=== PATIENT | male | born 1975 | race Caucasian/White ===

== ENCOUNTER 2017-06-07 21:46 | Emergency (ER) | payer SELFPAY ==
--- NOTE | 2017-06-08 06:42 | ED CLINICAL REPORT ---
Clinical Report - Physicians/Mid Levels [facility] [address] [place] [address] 06/07/2017 21:47 Patient: SOCORRO BINGHAM Time Seen: 2202. Arrived- By private vehicle. Historian- patient. HISTORY OF PRESENT ILLNESS Chief Complaint: "GOT THE SHAKES". Wants to stop drinking. Symptoms started today. Substances abused: Alcohol. No fever, chills, vomiting, diarrhea or abdominal pain. No tremors, seizure, agitation, delusions or hallucinations. He has had nausea and suicidal thoughts. But expresses no current suicidal thoughts and been depressed. Not confused or paranoid. The symptoms are described as moderate. No injuries noted. Patient states that he has been feeling depressed ever since his girlfriend committed suicide 5 years ago. However, he states that things got worse a couple months ago when he was notified that he would be evicted from his rental residence. Patient states that he was evicted 2 weeks ago and decided that he would also just quit his job. Patient states that he began drinking more heavily than usual at that time. Patient has been drinking about a pint of liquor daily for the last year, but that over the last 2 weeks, he has been drinking a fifth to a half gallon of whiskey every day. Patient states that today, he had a fifth of whiskey between 9:00 and noon, and then had a beer and a shot of whiskey at 1700 this evening. He states he has been feeling shaky and sweaty over the last couple of hours. Patient states his mother dropped him off here for detox. Similar symptoms previously: Recent medical care: The patient was seen recently by a health care provider (Pt was evaluated 2 weeks ago in [place] for EtOH withdrawal.). REVIEW OF SYSTEMS The patient has not had weight loss. No sweats, headache, dizziness, weakness or chest pain. No palpitations, black stools, numbness, bloody stools or sore throat. No cough, difficulty breathing, difficulty with urination, skin abscess or joint pain. No enlarged lymph nodes. No difficulty walking. All systems otherwise negative, except as recorded above. PAST HISTORY Problems: Alcoholism. Additional Surgeries: no known surgeries. Medications: None. Allergies: No Known Drug Allergy. SOCIAL HISTORY Smoker- current status unknown. Alcohol use. History of drug use: marijuana. FAMILY HISTORY Negative. ADDITIONAL NOTES The nursing notes have been reviewed. PHYSICAL EXAM Vital Signs: 06/07/2017 22:07 BP: 165/116. HR: 123. RR: 16. O2 saturation: 98%. Temp: 98.2 F. Pain level now: 0/10. Have been reviewed. Appearance: Alert. Oriented X3. No acute distress. (Patient appears slightly anxious.). Head: Head atraumatic. Eyes: Pupils equal, round and reactive to light. ENT: Normal ENT inspection. Airway intact. Moist mucous membranes. Neck: Normal inspection. CVS: Normal heart rate and rhythm. Heart sounds normal. Pulses normal. Respiratory: No respiratory distress. Breath sounds normal. Abdomen: Soft and nontender. Back: Normal inspection. Skin: Skin warm. Normal skin color. No rash. Normal skin turgor. Slight diaphoresis. Extremities: Extremities exhibit normal ROM. No lower extremity edema. Neuro: Alert. Oriented X 3. Mood/affect normal. Speech normal. Cranial nerves normal (as tested). No cerebellar findings. No motor deficit. No sensory deficit. (Patient has fine tremors of his bilateral upper extremities.). LABS, X-RAYS, AND EKG Laboratory Tests: Urine Drug Screen: (TATA: 06/08/2017 01:05) ( MsgRcvd 06/08/2017 01:26) Final results Test Result Flag Units (Reference) AMPHETAMINE/METHAMPHETAMINE NEGATIVE (NEGATIVE) BARBITURATE NEGATIVE (NEGATIVE) BENZODIAZEPINE NEGATIVE (NEGATIVE) CANNABINOID POSITIVE H (NEGATIVE) COCAINE NEGATIVE (NEGATIVE) ECSTASY NEGATIVE (NEGATIVE) METHADONE NEGATIVE (NEGATIVE) OPIATE NEGATIVE (NEGATIVE) The urine drug screen is a qualitative screening test fordrug overdose and abuse. All screen results should beconsidered as presumptive.Drugs screened for are as follows:BenzodiazepinesCocaineAmphetamines/MetamphetaminesTHC (Tetrahydrocannabinol)OpiatesBarbituratesEcstasyMethadonePositive results are unconfirmed. For confirmation, notifythe lab for the specimen to be sent to the reference lab.All confirmations must be performed by a differentmethodology.The ingestion of natural herbal and plant productscontaining Ephedra/Ephedra metabolites can produce in urineone or more substances capable of cross reacting withamphetamine/methamphetamine immunoassays. These testsprovide a preliminary result only. A more specificalternative chemical method must be used to obtain aconfirmed analytical result. CBC w Diff: (TATA: 06/07/2017 23:22) ( [facility] 06/07/2017 23:36) Final results Test Result Flag Units (Reference) WHITE BLOOD COUNT 4.4 L K/uL (4.5-11.5) RED BLOOD COUNT 4.23 L M/uL (4.50-5.90) HEMOGLOBIN 14.9 gm/dL (13.5-17.5) HEMATOCRIT 43.1 % (41.0-53.0) MEAN CELL VOLUME 102 H fL (80-100) MEAN CORPUSCULAR HGB 35 H pg (26-34) MEAN CORPUSCULAR HGB CONC 35 g/dL (31-37) RED CELL DISTRIBUTION WIDTH 12.4 % (11.6-14.8) PLATELET COUNT 116 L K/uL (150-400) LYMPH % 27.9 % (25-40) MONO % 10.6 % (3-14) GRANULOCYTE % 61.5 % (53-90) CMP: (TATA: 06/07/2017 23:22) ( [facility] 06/07/2017 23:49) Final results Test Result Flag Units (Reference) GLUCOSE 150 H mg/dL (70-110) BUN 11 mg/dL (7-18) CREATININE 0.9 mg/dL (0.6-1.3) Estimated GFR >60 mL/min Estimated GFR- >60 mL/min Note: Persistent reduction over 3 months in eGFR<60 mL/min/1.73 m2 defines CKD. Patients with eGFR values>=60 mL/min/1.73 m2 may also have CKD if evidence ofpersistent proteinuria. Additional information may be foundat www.kidney.org. SODIUM 137 mmol/L (136-145) POTASSIUM 3.3 L mmol/L (3.5-5.1) CHLORIDE 98 mmol/L (98-107) CARBON DIOXIDE 26 mmol/L (21-32) CALCIUM 8.8 mg/dL (8.5-10.1) TOTAL PROTEIN 8.1 g/dL (6.4-8.2) ALBUMIN 4.5 g/dL (3.3-5.0) BILIRUBIN, TOTAL 0.8 mg/dL (0.0-1.0) ALKALINE PHOSPHATASE 107 U/L (46-116) AST (SGOT) 246 H U/L (15-37) ALT (SGPT) 173 H U/L (12-78) ETHYL ALCOHOL 91 H mg/dL (3-10) . Pulse Oximetry: 06/07/2017 22:07 O2 saturation: 98%. (FIO2 - room air). Interpretation: normal. PROGRESS AND PROCEDURES Course of Care: PT was observed in the ED after receiving Ativan 1 mg IV, as well as a banana bag. Pt reported feeling better overall. Pt was not currently suicidal, but as he was in need of urgent mental health follow-up, I did contact the [facility] to have the pt evaluated by PAT. However, the clinician was not able to make it to the ED within the night, as she was busy elsewhere, and did inform us that no clinician would be available until the following night at 2200. [facility] stated they no longer do emergency dept evaluations, and so we did get the pt a next-day appt. Pt was agreeable to this, stating that he is staying with his parents, who will keep him safe and away from EtOH. Pt was given a prescription for Librium. Patient counseled in person regarding the patient's stable condition, test results, diagnosis and need for follow-up. Concerns were addressed. Old medical records ordered. Old records unavailable. Disposition: Discharged. Condition: stable and improved. CLINICAL IMPRESSION Chronic substance abuse- alcohol with intoxication. 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 INSTRUCTIONS (You have been scheduled for a follow-up appointment with [facility] ([address] [place] [address]) at 11:00 tomorrow morning. Their phone # is [phone].). Warnings: SEDATIVE MEDICATION: You were given sedative medication during your visit. Do not drive or operate dangerous machinery for 6 hours. GENERAL WARNINGS: Return or contact your physician immediately if your condition worsens or changes unexpectedly, if not improving as expected, or if other problems arise. Prescription Medications: Librium 10 mg: take 1 orally every 8 hours for 3 days. No refill. Substitution is permissible. (disp # QS) Understanding of the discharge instructions verbalized by patient and family. Follow-up with: [facility], , [address] [place] [address], [address] [place] [address] Follow up. Call for the next available appointment. Reason for referral: Establish care. Follow-up with: Information [facility], Certified Mental Health Board Certified Music Therapist, , , , , (Electronically signed by Ada Jimenez MD 06/09/2017 18:19)
--- NOTE | 2017-06-08 06:42 | ED ORDER SUMMARY ---
..... Patient: SOCORRO BINGHAM OrderSheet [facility] VisitID: [id number] [place] [address] 42y, M Registration Date/Time: 06/07/2017 ORDER SHEET Weight: 74.8 kg (stated) Allergies: No Known Drug Allergy GENERAL ORDERS: CBC w Diff Urgent (22:53 06/07/2017 Leander CAMPOS) (Ack 22:58 CHagerty ER Fish Skinning Machine Feeder) (23:32 JQuivey R.N.) CMP Urgent (:53 06/07/2017 Leander CAMPOS) (Ack 22:58 CHagerty ER Fish Skinning Machine Feeder) (23:32 JQuivey R.N.) Urine Drug Screen Urgent (:53 06/07/2017 Leander CAMPOS) (Ack 22:58 [employer] [facility] Fish Skinning Machine Feeder) (1:11 JQuivey R.N.) Ethyl Alcohol Urgent (:53 06/07/2017 Leander CAMPOS) (Ack 22:58 [employer] ER Fish Skinning Machine Feeder) (23:32 JQuivey R.N.) MEDICATION ORDERS: IV FLUIDS: IV NS with Normal Saline 1 Liter, Folic Acid 1 mg/L, Magnesium Sulfate 2 gm/L, Multivitamin Concentrate Intravenous 1 amp/L, Thiamine HCl 100 mg/L: initial bolus 1000 mL (1000 mL/hr), then none - (NOW) (22:53 06/07/2017 Leander CAMPOS) (23:35 JQuivey R.N.) Ativan IV 1 mg (HIGH ALERT MEDICATION, NOW) (22:53 06/07/2017 Leander CAMPOS) (23:36 JQuivey R.N.) Zofran IV 4 mg (NOW) (22:53 06/07/2017 Leander CAMPOS) (23:36 JQuivey R.N.) Ativan IV 1 mg (HIGH ALERT MEDICATION, NOW) (06:25 06/08/2017 Leander CAMPOS) (Ack 6:34 JQuivey R.N.) (6:52 JQuivey R.N.) ORDER SHEET NOTES: [Electronically signed by Kian Stover R.N. (07:09 06/08/2017)] [Electronically signed by Ada Jimenez MD (18:19 06/09/2017)] [Electronically locked/signed by Kian Stover R.N. (07:09 06/08/2017)]
--- NOTE | 2017-06-08 06:42 | ED ORDER SUMMARY ---
..... Patient: SOCORRO BINGHAM OrderSheet [facility] VisitID: [id number] [place] [address] 42y, M Registration Date/Time: 06/07/2017 ORDER SHEET Weight: 74.8 kg (stated) Allergies: No Known Drug Allergy GENERAL ORDERS: CBC w Diff Urgent (22:53 06/07/2017 Leander CAMPOS) (Ack 22:58 CHagerty ER Diesel Engineer) (23:32 JQuivey R.N.) CMP Urgent (:53 06/07/2017 Leander CAMPOS) (Ack 22:58 CHagerty ER Diesel Engineer) (23:32 JQuivey R.N.) Urine Drug Screen Urgent (:53 06/07/2017 Leander CAMPOS) (Ack 22:58 AM Technology ER Diesel Engineer) (1:11 JQuivey R.N.) Ethyl Alcohol Urgent (:53 06/07/2017 Leander CAMPOS) (Ack 22:58 AM Technology ER Diesel Engineer) (23:32 JQuivey R.N.) MEDICATION ORDERS: IV FLUIDS: IV NS with Normal Saline 1 Liter, Folic Acid 1 mg/L, Magnesium Sulfate 2 gm/L, Multivitamin Concentrate Intravenous 1 amp/L, Thiamine HCl 100 mg/L: initial bolus 1000 mL (1000 mL/hr), then none - (NOW) (22:53 06/07/2017 Leander CAMPOS) (23:35 JQuivey R.N.) Ativan IV 1 mg (HIGH ALERT MEDICATION, NOW) (22:53 06/07/2017 Leander CAMPOS) (23:36 JQuivey R.N.) Zofran IV 4 mg (NOW) (22:53 06/07/2017 Leander CAMPOS) (23:36 JQuivey R.N.) Ativan IV 1 mg (HIGH ALERT MEDICATION, NOW) (06:25 06/08/2017 Leander CAMPOS) (Ack 6:34 JQuivey R.N.) (6:52 JQuivey R.N.) ORDER SHEET NOTES: [Electronically signed by Kian Stover R.N. (07:09 06/08/2017)] [Electronically signed by Ada Jimenez MD (18:19 06/09/2017)] [Electronically locked/signed by Kian Stover R.N. (07:09 06/08/2017)]
--- NOTE | 2017-06-08 06:42 | ED CLINICAL REPORT ---
Clinical Report - Physicians/Mid Levels [facility] [address] [place] [address] 06/07/2017 21:47 Patient: SOCORRO BINGHAM Time Seen: 2202. Arrived- By private vehicle. Historian- patient. HISTORY OF PRESENT ILLNESS Chief Complaint: "GOT THE SHAKES". Wants to stop drinking. Symptoms started today. Substances abused: Alcohol. No fever, chills, vomiting, diarrhea or abdominal pain. No tremors, seizure, agitation, delusions or hallucinations. He has had nausea and suicidal thoughts. But expresses no current suicidal thoughts and been depressed. Not confused or paranoid. The symptoms are described as moderate. No injuries noted. Patient states that he has been feeling depressed ever since his girlfriend committed suicide 5 years ago. However, he states that things got worse a couple months ago when he was notified that he would be evicted from his rental residence. Patient states that he was evicted 2 weeks ago and decided that he would also just quit his job. Patient states that he began drinking more heavily than usual at that time. Patient has been drinking about a pint of liquor daily for the last year, but that over the last 2 weeks, he has been drinking a fifth to a half gallon of whiskey every day. Patient states that today, he had a fifth of whiskey between 9:00 and noon, and then had a beer and a shot of whiskey at 1700 this evening. He states he has been feeling shaky and sweaty over the last couple of hours. Patient states his mother dropped him off here for detox. Similar symptoms previously: Recent medical care: The patient was seen recently by a health care provider (Pt was evaluated 2 weeks ago in [place] for EtOH withdrawal.). REVIEW OF SYSTEMS The patient has not had weight loss. No sweats, headache, dizziness, weakness or chest pain. No palpitations, black stools, numbness, bloody stools or sore throat. No cough, difficulty breathing, difficulty with urination, skin abscess or joint pain. No enlarged lymph nodes. No difficulty walking. All systems otherwise negative, except as recorded above. PAST HISTORY Problems: Alcoholism. Additional Surgeries: no known surgeries. Medications: None. Allergies: No Known Drug Allergy. SOCIAL HISTORY Smoker- current status unknown. Alcohol use. History of drug use: marijuana. FAMILY HISTORY Negative. ADDITIONAL NOTES The nursing notes have been reviewed. PHYSICAL EXAM Vital Signs: 06/07/2017 22:07 BP: 165/116. HR: 123. RR: 16. O2 saturation: 98%. Temp: 98.2 F. Pain level now: 0/10. Have been reviewed. Appearance: Alert. Oriented X3. No acute distress. (Patient appears slightly anxious.). Head: Head atraumatic. Eyes: Pupils equal, round and reactive to light. ENT: Normal ENT inspection. Airway intact. Moist mucous membranes. Neck: Normal inspection. CVS: Normal heart rate and rhythm. Heart sounds normal. Pulses normal. Respiratory: No respiratory distress. Breath sounds normal. Abdomen: Soft and nontender. Back: Normal inspection. Skin: Skin warm. Normal skin color. No rash. Normal skin turgor. Slight diaphoresis. Extremities: Extremities exhibit normal ROM. No lower extremity edema. Neuro: Alert. Oriented X 3. Mood/affect normal. Speech normal. Cranial nerves normal (as tested). No cerebellar findings. No motor deficit. No sensory deficit. (Patient has fine tremors of his bilateral upper extremities.). LABS, X-RAYS, AND EKG Laboratory Tests: Urine Drug Screen: (TATA: 06/08/2017 01:05) ( MsgRcvd 06/08/2017 01:26) Final results Test Result Flag Units (Reference) AMPHETAMINE/METHAMPHETAMINE NEGATIVE (NEGATIVE) BARBITURATE NEGATIVE (NEGATIVE) BENZODIAZEPINE NEGATIVE (NEGATIVE) CANNABINOID POSITIVE H (NEGATIVE) COCAINE NEGATIVE (NEGATIVE) ECSTASY NEGATIVE (NEGATIVE) METHADONE NEGATIVE (NEGATIVE) OPIATE NEGATIVE (NEGATIVE) The urine drug screen is a qualitative screening test fordrug overdose and abuse. All screen results should beconsidered as presumptive.Drugs screened for are as follows:BenzodiazepinesCocaineAmphetamines/MetamphetaminesTHC (Tetrahydrocannabinol)OpiatesBarbituratesEcstasyMethadonePositive results are unconfirmed. For confirmation, notifythe lab for the specimen to be sent to the reference lab.All confirmations must be performed by a differentmethodology.The ingestion of natural herbal and plant productscontaining Ephedra/Ephedra metabolites can produce in urineone or more substances capable of cross reacting withamphetamine/methamphetamine immunoassays. These testsprovide a preliminary result only. A more specificalternative chemical method must be used to obtain aconfirmed analytical result. CBC w Diff: (TATA: 06/07/2017 23:22) ( [facility] 06/07/2017 23:36) Final results Test Result Flag Units (Reference) WHITE BLOOD COUNT 4.4 L K/uL (4.5-11.5) RED BLOOD COUNT 4.23 L M/uL (4.50-5.90) HEMOGLOBIN 14.9 gm/dL (13.5-17.5) HEMATOCRIT 43.1 % (41.0-53.0) MEAN CELL VOLUME 102 H fL (80-100) MEAN CORPUSCULAR HGB 35 H pg (26-34) MEAN CORPUSCULAR HGB CONC 35 g/dL (31-37) RED CELL DISTRIBUTION WIDTH 12.4 % (11.6-14.8) PLATELET COUNT 116 L K/uL (150-400) LYMPH % 27.9 % (25-40) MONO % 10.6 % (3-14) GRANULOCYTE % 61.5 % (53-90) CMP: (TATA: 06/07/2017 23:22) ( [facility] 06/07/2017 23:49) Final results Test Result Flag Units (Reference) GLUCOSE 150 H mg/dL (70-110) BUN 11 mg/dL (7-18) CREATININE 0.9 mg/dL (0.6-1.3) Estimated GFR >60 mL/min Estimated GFR- >60 mL/min Note: Persistent reduction over 3 months in eGFR<60 mL/min/1.73 m2 defines CKD. Patients with eGFR values>=60 mL/min/1.73 m2 may also have CKD if evidence ofpersistent proteinuria. Additional information may be foundat www.kidney.org. SODIUM 137 mmol/L (136-145) POTASSIUM 3.3 L mmol/L (3.5-5.1) CHLORIDE 98 mmol/L (98-107) CARBON DIOXIDE 26 mmol/L (21-32) CALCIUM 8.8 mg/dL (8.5-10.1) TOTAL PROTEIN 8.1 g/dL (6.4-8.2) ALBUMIN 4.5 g/dL (3.3-5.0) BILIRUBIN, TOTAL 0.8 mg/dL (0.0-1.0) ALKALINE PHOSPHATASE 107 U/L (46-116) AST (SGOT) 246 H U/L (15-37) ALT (SGPT) 173 H U/L (12-78) ETHYL ALCOHOL 91 H mg/dL (3-10) . Pulse Oximetry: 06/07/2017 22:07 O2 saturation: 98%. (FIO2 - room air). Interpretation: normal. PROGRESS AND PROCEDURES Course of Care: PT was observed in the ED after receiving Ativan 1 mg IV, as well as a banana bag. Pt reported feeling better overall. Pt was not currently suicidal, but as he was in need of urgent mental health follow-up, I did contact the [facility] to have the pt evaluated by PAT. However, the clinician was not able to make it to the ED within the night, as she was busy elsewhere, and did inform us that no clinician would be available until the following night at 2200. [facility] stated they no longer do emergency dept evaluations, and so we did get the pt a next-day appt. Pt was agreeable to this, stating that he is staying with his parents, who will keep him safe and away from EtOH. Pt was given a prescription for Librium. Patient counseled in person regarding the patient's stable condition, test results, diagnosis and need for follow-up. Concerns were addressed. Old medical records ordered. Old records unavailable. Disposition: Discharged. Condition: stable and improved. CLINICAL IMPRESSION Chronic substance abuse- alcohol with intoxication. 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 INSTRUCTIONS (You have been scheduled for a follow-up appointment with [facility] ([address] [place] [address]) at 11:00 tomorrow morning. Their phone # is [phone].). Warnings: SEDATIVE MEDICATION: You were given sedative medication during your visit. Do not drive or operate dangerous machinery for 6 hours. GENERAL WARNINGS: Return or contact your physician immediately if your condition worsens or changes unexpectedly, if not improving as expected, or if other problems arise. Prescription Medications: Librium 10 mg: take 1 orally every 8 hours for 3 days. No refill. Substitution is permissible. (disp # QS) Understanding of the discharge instructions verbalized by patient and family. Follow-up with: [facility], , [address] [place] [address], [address] [place] [address] Follow up. Call for the next available appointment. Reason for referral: Establish care. Follow-up with: Information [facility], Certified Mental Health Switchboard Manager, , , , , (Electronically signed by Ada Jimenez MD 06/09/2017 18:19)
--- NOTE | 2017-06-08 06:42 | ED NURSING NOTES ---
Clinical Report - Nurses [facility] [place] [address] 06/07/2017 21:47 Patient: SOCORRO BINGHAM TRIAGE Triage time 22:07. Acuity: LEVEL 3. Chief Complaint: DEPRESSION and SUBSTANCE ABUSE (Anxiety, Shaking). 22:18. Alert. MALENA COMA SCORE: Malena Coma Scale: 15- eyes open spontaneously (4); best verbal response- oriented x 4 (5); best motor response- obeys commands (6). --22:18 Kian Stover R.N. 22:07 06/07/17. BP: 165/116. HR: 123. RR: 16. O2 saturation: 98% on room air. Temp: 98.2 F (oral). Pain level now: 0/10. --22:18 Kian Stover R.N. Weight: 74.8 kg stated. Height/Length: 70 inches Per Patient. BMI: 23.7. --22:18 Kian Stover R.N. Medications None. --22:12 Kian Stover R.N. Medication/allergy information source: the patient. --22:18 Kian Stover R.N. Allergies No Known Drug Allergy. --22:12 Kian Stover R.N. History Arrived by private vehicle. Historian: patient. Unaccompanied (dropped off by parents). Primary physician (None). Onset. (months ago). ( Patient reports binge drinking for the last 2 years, with consumption amount increasing to the current level of close to 1/2 gallon of whiskey daily, reports being evicted and quitting his job recently). 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 PAST MEDICAL HX: Immunizations: up-to-date. SOCIAL HX: Heavy tobacco smoker- less than 1 pack per day. Heavy alcohol use. (states he has been drinking about 1/2 gallon /day for the last 2 weeks). History of occasional drug use: marijuana. No infectious disease exposure. FALL RISK ASSESSMENT: Fall risk assessment completed. No fall risk identified. NUTRITIONAL RISK ASSESSMENT: The nutritional risk assessment revealed no deficiencies. FUNCTIONAL ASSESSMENT: Functional assessment: no impairments noted. LEARNING NEEDS ASSESSMENT: The learning needs assessment revealed no barriers. SKIN INTEGRITY ASSESSMENT: Skin integrity risk assessment completed. No skin integrity risk identified. --22:18 Kian Stover R.N. PROBLEMS: no known problems. ADDITIONAL SURGERIES: no known surgeries. Interventions ID band on patient. To treatment room. --22:18 Kian Stover R.N. PHYSICAL ASSESSMENT 22:18. Ambulatory to room. Patient gowned. GENERAL / NEURO / PSYCH: Alert. Oriented X 4. Appears anxious. HEENT: No facial asymmetry noted. Mucous membranes are pink. RESPIRATORY: Respirations not labored. SKIN: Skin intact. Skin is warm and dry. Normal skin turgor. --22:18 Kian Stover R.N. NURSING PROGRESS NOTES 22:18. Head of bed elevated. Two patient identifiers checked. Call light placed in reach. Bed placed in lowest position. Brakes of bed on. Patient ready for evaluation- chart flagged. --22:19 Kian Stover R.N. 23:22 06/07/2017 Site #1 started via IV in the right hand with an 20g angiocath, with aseptic technique and good blood return; one attempt. Blood drawn: rainbow set. Labeled in the presence of the patient and sent to the lab. Saline lock flushed with 10 mL saline. --23:33 Kian Stover R.N. 23:24 06/07/2017 Started bag #1 1050 mL IV Fluids IV NS (Saline); at 1000 mL/hr with Folic Acid [IVPB] 1mg, Multivitamin [IVPB] 1unit dose, Thiamine [IVPB] 100mg and Magnesium Sulfate [IVP] 2gm over 1 hour(s) via site #1 --23:35 Kian Stover R.N. 23:25 06/07/2017 Zofran (Ondansetron HCl) IVP 4 mg given over 2 minute(s) via site #1. Allergies verified and confirmed 5 rights. IV patency established. IV site checked: no pain, redness, or swelling. IV flushed thoroughly pre- and post-medication administration. --23:36 Kian Stover R.N. 23:28 06/07/2017 Ativan (LORazepam) IVP 1 mg given over 2 minute(s) via site #1. Allergies verified, confirmed 5 rights and sedative warning given to the patient. IV patency established. IV site checked: no pain, redness, or swelling. IV flushed thoroughly pre- and post-medication administration. --23:36 Kian Stover R.N. 00:30 06/08/2017 IV Fluids IV NS Discontinued: bag #1 infused. Total amount infused: 1050 mL. IV patency established. IV site checked: no pain, redness, or swelling. IV flushed thoroughly. --01:12 Kian Stover R.N. 01:05. Patient ID band checked for patient name and birthdate: patient confirmed. Clean catch urine collected with return of yellow-colored frances-colored clear urine; sample sent to lab for urinalysis and drug screen. Specimen labeled in the presence of the patient. --01:12 Kian Stover R.N. The patient is calm and resting quietly. RESPIRATORY: No respiratory distress. SKIN: Skin is warm and dry. Skin color within normal limits. --01:13 Kian Stover R.N. 01:12 06/08/17. BP: 163/108. HR: 104. RR: 16. O2 saturation: 95% on room air. --01:13 Kian Stover R.N. 02:56 Patient walked to restroom and back to bed. --02:58 Kian Stover R.N. 03:46 06/08/17. BP: 169/96. HR: 104. RR: 16. O2 saturation: 99% on room air. Pain level now: 0/10. --03:46 Kian Stover R.N. The patient is calm and resting quietly. RESPIRATORY: No respiratory distress. SKIN: Skin is warm and dry. Skin color within normal limits. --03:46 Kian Stover R.N. The patient is sleeping. RESPIRATORY: No respiratory distress. SKIN: Skin is warm and dry. Skin color within normal limits. --05:04 Kian Stover R.N. 06:03. The patient is calm and resting quietly. RESPIRATORY: No respiratory distress. SKIN: Skin is warm and dry. Skin color within normal limits. --06:03 Kian Stover R.N. 06:02 06/08/17. BP: 169/110. HR: 104. RR: 15. O2 saturation: 98% on room air. Pain level now: 0/10. --06:03 Kian Stover R.N. 06:06 Patient given peanut butter and crackers. --06:07 Kian Stover R.N. 06:42 06/08/2017 Ativan (LORazepam) IVP 1 mg given over 2 minute(s) via site #1. Allergies verified, confirmed 5 rights and sedative warning given to the patient and patient's family. IV patency established. IV site checked: no pain, redness, or swelling. IV flushed thoroughly pre- and post-medication administration. --06:52 Kian Stover R.N. 06:48. The patient is calm and resting quietly. RESPIRATORY: No respiratory distress. SKIN: Skin is warm and dry. Skin color within normal limits. --06:52 Kian Stover R.N. DISPOSITION / DISCHARGE 06:47 06/08/2017 Site #1 removed upon discharge. Catheter intact. Bandage applied. --06:51 Kian Stover R.N. Departure time: 06:51. Condition at departure: stable. No learning barriers present. Discharge instructions provided and reviewed with the patient and parent. Reviewed medication(s) side effects, precautions, dosing and course information. Prescription(s) given to the patient. Patient and parent verbalized understanding. Written instructions provided in Jordanian. The patient was discharged home and accompanied by parent. He left the Emergency Department ambulatory and via private vehicle. Parent driving. FALL RISK ASSESSMENT: Fall risk assessment completed. No fall risk identified. --06:52 Kian Stover R.N. 06:42 06/08/17. BP: 162/98. HR: 95. RR: 15. O2 saturation: 96%. Pain level now: 0/10. --06:52 Kian Stover R.N. Locked/Released at 06/08/2017 7:09 by Kian Stover R.N.
--- NOTE | 2017-06-09 18:19 | ED MAR SUMMARY ---
..... Medication Administration Record [facility] [address] [place] [address] Patient: SOCORRO BINGHAM Visit ID: [id number] 42y, M Weight: 74.8 kg Height/Length: 70 in BMI: 23.7 ALLERGIES: No Known Drug Allergy Start 23:24 06/07/2017 Kian Stover R.N., Stop 00:30 06/08/2017 Kian Stover R.N. Medication Administered: IV NS (SALINE), Dose: IV Fluids over 1 hour(s), With: FOLIC ACID [IVPB] 1 mg; MAGNESIUM SULFATE [IVP] 2 gm; MULTIVITAMIN [IVPB] 1 unit dose; THIAMINE [IVPB] 100 mg, Rate: 1000 mL/hr, Dispensed: 1050 mL bag, Site: #1 right hand. Medication Ordered: IV NS with Normal Saline 1 Liter, Folic Acid 1 mg/L, Magnesium Sulfate 2 gm/L, Multivitamin Concentrate Intravenous 1 amp/L, Thiamine HCl 100 mg/L: initial bolus 1000 mL (1000 mL/hr), then none - (NOW). Given 23:25 06/07/2017 Kian Stover R.N. Medication Administered: ZOFRAN [IVP] (ONDANSETRON HCL), Dose: 4 mg IVP over 2 minute(s), Site: #1 right hand. Medication Ordered: Zofran IV 4 mg (NOW). Given 23:28 06/07/2017 Kian Stover R.N. Medication Administered: ATIVAN [IVP] (LORAZEPAM), Dose: 1 mg IVP over 2 minute(s), Site: #1 right hand. Medication Ordered: Ativan IV 1 mg (HIGH ALERT MEDICATION, NOW). Given 06:42 06/08/2017 Kian Stover R.N. Medication Administered: ATIVAN [IVP] (LORAZEPAM), Dose: 1 mg IVP over 2 minute(s), Site: #1 right hand. Medication Ordered: Ativan IV 1 mg (HIGH ALERT MEDICATION, NOW).
--- NOTE | 2017-06-09 18:19 | ED MAR SUMMARY ---
..... Medication Administration Record [facility] [address] [place] [place] [address] Patient: SOCORRO BINGHAM Visit ID: [id number] 42y, M Weight: 74.8 kg Height/Length: 70 in BMI: 23.7 ALLERGIES: No Known Drug Allergy Start 23:24 06/07/2017 Kian Stover R.N., Stop 00:30 06/08/2017 Kian Stover R.N. Medication Administered: IV NS (SALINE), Dose: IV Fluids over 1 hour(s), With: FOLIC ACID [IVPB] 1 mg; MAGNESIUM SULFATE [IVP] 2 gm; MULTIVITAMIN [IVPB] 1 unit dose; THIAMINE [IVPB] 100 mg, Rate: 1000 mL/hr, Dispensed: 1050 mL bag, Site: #1 right hand. Medication Ordered: IV NS with Normal Saline 1 Liter, Folic Acid 1 mg/L, Magnesium Sulfate 2 gm/L, Multivitamin Concentrate Intravenous 1 amp/L, Thiamine HCl 100 mg/L: initial bolus 1000 mL (1000 mL/hr), then none - (NOW). Given 23:25 06/07/2017 Kian Stover R.N. Medication Administered: ZOFRAN [IVP] (ONDANSETRON HCL), Dose: 4 mg IVP over 2 minute(s), Site: #1 right hand. Medication Ordered: Zofran IV 4 mg (NOW). Given 23:28 06/07/2017 Kian Stover R.N. Medication Administered: ATIVAN [IVP] (LORAZEPAM), Dose: 1 mg IVP over 2 minute(s), Site: #1 right hand. Medication Ordered: Ativan IV 1 mg (HIGH ALERT MEDICATION, NOW). Given 06:42 06/08/2017 Kian Stover R.N. Medication Administered: ATIVAN [IVP] (LORAZEPAM), Dose: 1 mg IVP over 2 minute(s), Site: #1 right hand. Medication Ordered: Ativan IV 1 mg (HIGH ALERT MEDICATION, NOW).
--- NOTE | 2017-06-09 18:19 | ED DISCHARGE INSTRUCTIONS ---
Patient: SOCORRO BINGHAM General Instructions [facility] VisitID: [id number] [place] [phone] 42y, M Registration Date/Time: 06/07/2017 Chronic substance abuse- alcohol with intoxication. 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 INSTRUCTIONS (You have been scheduled for a follow-up appointment with [facility] ([address] [place] [address]) at 11:00 tomorrow morning. Their phone # is [phone].). Warnings: SEDATIVE MEDICATION: You were given sedative medication during your visit. Do not drive or operate dangerous machinery for 6 hours. GENERAL WARNINGS: Return or contact your physician immediately if your condition worsens or changes unexpectedly, if not improving as expected, or if other problems arise. Prescription Medications: Librium 10 mg: take 1 orally every 8 hours for 3 days. No refill. Substitution is permissible. (disp # QS) Understanding of the discharge instructions verbalized by patient and family. Follow-up with: [facility], [facility], , [address] [place] [address], [address], [place] [address] Follow up. Call for the next available appointment. Reason for referral: Establish care. Follow-up with: [facility], [facility] [employer], , , , , ADDITIONAL INFORMATION Alcohol Intoxication Alcohol intoxication occurs when you drink alcohol faster than your liver can remove it from your system. Alcohol intoxication affects your judgment and coordination. Very high blood alcohol levels can cause coma, very slow breathing and even . If you drink alcohol every day, this may gradually cause permanent damage to your liver, brain, heart, pancreas and other organs. Alcohol use during may cause permanent damage to the growing baby. Home Care: Do not drink any more alcohol. DO NOT DRIVE until all effects of the alcohol have worn off. Get lots of rest over the next few days. Drink plenty of water and other non-alcoholic liquids. Try to eat regular meals. If you have been drinking heavily on a daily basis, you may go through alcohol withdrawl. This is also called the shakes or DTs. The usual symptoms last 3 to 4 days and may include nervousness, shakiness, nausea, sweating or sleeplessness. During this time, it is best that you stay with family or friends who can help and support you. You can also admit yourself to a residential detox program. If your symptoms are severe, contact your doctor for medicines to help. Follow Up: If alcohol is causing a problem in your life, these and other organizations can help you: Alcoholics Anonymous offers support through a self-help fellowship. There are no dues or fees. See the Yellow Pages and call for time and place of meetings. www.aa.org [employer] offers support to families of alcohol users. 489.900.6163 www.al-anon.org National [place] On Alcoholism And Drug Dependence 293-885-7040 www.ncadd.org There are also inpatient or residential alcohol detox programs. Check the Internet or phonebook Yellow Pages under Drug Abuse & Treatment Centers. Get Prompt Medical Attention if any of the following occur: there) Depression Depression is one of the most common mental health problems today. It is not just a state of unhappiness or sadness. It is a true disease. The cause seems to be related to a decrease in chemicals that transmit signals in the brain. Having a family history of depression, alcoholism or suicide increases the risk. Chronic illness, chronic pain, migraine headaches and high emotional stress also increase the risk. Depression can cause many different symptoms, such as: -- Loss of appetite -- Over-eating -- Not being able to sleep -- Sleeping too much -- Tiredness not related to physical exertion -- Restlessness or irritability -- Slowness of movement or speech -- Feeling depressed or withdrawn -- Loss of interest in things you once enjoyed -- Difficulty in concentrating, poor memory, have trouble making decisions -- Thoughts of harming or killing oneself, or thoughts that life is not worth living -- Low self-esteem The best treatment for depression is a combination of medicine and psychotherapy. Antidepressant medicines can reduce suffering and can improve the ability to function during the depressed period. Therapy can offer emotional support and help you understand emotional factors that may be causing the depression. Home Care: 1) Be kind to yourself. Make it a point to do things that you enjoy (gardening, walking in nature, going to a movie, etc.). Reward yourself for small successes. 2) Take care of your physical body. Eat a balanced diet (low in saturated fat and high in fruits and vegetables). Establish an exercise plan at least 3 times a week for 30 minutes. Even mild-moderate exercise (like brisk walking) can make you feel better. 3) Avoid alcohol, which can make depression worse. Follow-Up with your doctor as advised. It is important to keep in contact with a health care provider until your symptoms begin to improve. Get Prompt Medical Attention if any of the following occur: -- Feeling extreme depression, fear, anxiety, or anger toward yourself or others -- Feeling out of control -- Feeling that you may try to harm yourself or another -- Hearing voices that others do not hear -- Seeing things that others do not see -- Cant sleep or eat for 3 days in a row You have been given the following additional information: Alcohol Intoxication Depression (Electronically signed by Ada Jimenez MD 06/09/2017 18:19)
--- NOTE | 2017-06-09 18:19 | ED DISCHARGE INSTRUCTIONS ---
Patient: SOCORRO BINGHAM General Instructions [facility] VisitID: [id number] [place] [phone] 42y, M Registration Date/Time: 06/07/2017 Chronic substance abuse- alcohol with intoxication. 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 INSTRUCTIONS (You have been scheduled for a follow-up appointment with [facility] ([address] [place] [address]) at 11:00 tomorrow morning. Their phone # is [phone].). Warnings: SEDATIVE MEDICATION: You were given sedative medication during your visit. Do not drive or operate dangerous machinery for 6 hours. GENERAL WARNINGS: Return or contact your physician immediately if your condition worsens or changes unexpectedly, if not improving as expected, or if other problems arise. Prescription Medications: Librium 10 mg: take 1 orally every 8 hours for 3 days. No refill. Substitution is permissible. (disp # QS) Understanding of the discharge instructions verbalized by patient and family. Follow-up with: [facility], [facility], , [address] [place] [address], [address], [place] [address] Follow up. Call for the next available appointment. Reason for referral: Establish care. Follow-up with: [facility], Certified [facility] [employer], , , , , ADDITIONAL INFORMATION Alcohol Intoxication Alcohol intoxication occurs when you drink alcohol faster than your liver can remove it from your system. Alcohol intoxication affects your judgment and coordination. Very high blood alcohol levels can cause coma, very slow breathing and even . If you drink alcohol every day, this may gradually cause permanent damage to your liver, brain, heart, pancreas and other organs. Alcohol use during may cause permanent damage to the growing baby. Home Care: Do not drink any more alcohol. DO NOT DRIVE until all effects of the alcohol have worn off. Get lots of rest over the next few days. Drink plenty of water and other non-alcoholic liquids. Try to eat regular meals. If you have been drinking heavily on a daily basis, you may go through alcohol withdrawl. This is also called the shakes or DTs. The usual symptoms last 3 to 4 days and may include nervousness, shakiness, nausea, sweating or sleeplessness. During this time, it is best that you stay with family or friends who can help and support you. You can also admit yourself to a residential detox program. If your symptoms are severe, contact your doctor for medicines to help. Follow Up: If alcohol is causing a problem in your life, these and other organizations can help you: Alcoholics Anonymous offers support through a self-help fellowship. There are no dues or fees. See the Yellow Pages and call for time and place of meetings. www.aa.org [employer] offers support to families of alcohol users. 712.556.6605 www.al-anon.org National [employer] [place] On Alcoholism And Drug Dependence 750-885-4067 www.ncadd.org There are also inpatient or residential alcohol detox programs. Check the Internet or phonebook Yellow Pages under Drug Abuse & Treatment Centers. Get Prompt Medical Attention if any of the following occur: there) Depression Depression is one of the most common mental health problems today. It is not just a state of unhappiness or sadness. It is a true disease. The cause seems to be related to a decrease in chemicals that transmit signals in the brain. Having a family history of depression, alcoholism or suicide increases the risk. Chronic illness, chronic pain, migraine headaches and high emotional stress also increase the risk. Depression can cause many different symptoms, such as: -- Loss of appetite -- Over-eating -- Not being able to sleep -- Sleeping too much -- Tiredness not related to physical exertion -- Restlessness or irritability -- Slowness of movement or speech -- Feeling depressed or withdrawn -- Loss of interest in things you once enjoyed -- Difficulty in concentrating, poor memory, have trouble making decisions -- Thoughts of harming or killing oneself, or thoughts that life is not worth living -- Low self-esteem The best treatment for depression is a combination of medicine and psychotherapy. Antidepressant medicines can reduce suffering and can improve the ability to function during the depressed period. Therapy can offer emotional support and help you understand emotional factors that may be causing the depression. Home Care: 1) Be kind to yourself. Make it a point to do things that you enjoy (gardening, walking in nature, going to a movie, etc.). Reward yourself for small successes. 2) Take care of your physical body. Eat a balanced diet (low in saturated fat and high in fruits and vegetables). Establish an exercise plan at least 3 times a week for 30 minutes. Even mild-moderate exercise (like brisk walking) can make you feel better. 3) Avoid alcohol, which can make depression worse. Follow-Up with your doctor as advised. It is important to keep in contact with a health care provider until your symptoms begin to improve. Get Prompt Medical Attention if any of the following occur: -- Feeling extreme depression, fear, anxiety, or anger toward yourself or others -- Feeling out of control -- Feeling that you may try to harm yourself or another -- Hearing voices that others do not hear -- Seeing things that others do not see -- Cant sleep or eat for 3 days in a row You have been given the following additional information: Alcohol Intoxication Depression (Electronically signed by Ada Jimenez MD 06/09/2017 18:19)
--- NOTE | 2017-06-09 18:20 | ED MED RECONCILIATION SUMMARY ---
Patient: SOCORRO BINGHAM Medication Reconciliation Report [facility] VisitID: [id number] [place] [address] 42y, M Registration Date/Time: 06/07/2017 Weight: 74.8 kg Height/Length: 70 in. BMI: 23.7 ALLERGIES: No Known Drug Allergy The patient's Home Medications are listed below: NONE. The source(s) of the original Home Medication information: patient The following Medications were given to the patient in the Emergency Department: IV NS IV Fluids bolus 0, then 1000 mL/hr with Folic Acid [IVPB] 1 mg, Magnesium Sulfate [IVP] 2 gm, Multivitamin [IVPB] 1 unit dose and Thiamine [IVPB] 100 mg, administered: 06/07/2017 11:24:00 PM Zofran [IVP] IVP 4 mg, administered: 06/07/2017 11:25:00 PM Ativan [IVP] IVP 1 mg, administered: 06/07/2017 11:28:00 PM Ativan [IVP] IVP 1 mg, administered: 06/08/2017 6:42:00 AM The following Medications were prescribed to the patient: Librium 10 mg: take 1 orally every 8 hours for 3 days. No refill. Substitution is permissible.(disp # QS) -- Ada Jimenez MD
--- NOTE | 2017-06-09 18:20 | ED MED RECONCILIATION SUMMARY ---
Patient: SOCORRO BINGHAM Medication Reconciliation Report [facility] VisitID: [id number] [place] [address] 42y, M Registration Date/Time: 06/07/2017 Weight: 74.8 kg Height/Length: 70 in. BMI: 23.7 ALLERGIES: No Known Drug Allergy The patient's Home Medications are listed below: NONE. The source(s) of the original Home Medication information: patient The following Medications were given to the patient in the Emergency Department: IV NS IV Fluids bolus 0, then 1000 mL/hr with Folic Acid [IVPB] 1 mg, Magnesium Sulfate [IVP] 2 gm, Multivitamin [IVPB] 1 unit dose and Thiamine [IVPB] 100 mg, administered: 06/07/2017 11:24:00 PM Zofran [IVP] IVP 4 mg, administered: 06/07/2017 11:25:00 PM Ativan [IVP] IVP 1 mg, administered: 06/07/2017 11:28:00 PM Ativan [IVP] IVP 1 mg, administered: 06/08/2017 6:42:00 AM The following Medications were prescribed to the patient: Librium 10 mg: take 1 orally every 8 hours for 3 days. No refill. Substitution is permissible.(disp # QS) -- Ada Jimenez MD
== END 2017-06-08 06:51 | disposition home or self-care (01) ==
LOC: ED SRH 21:46
DX: F10.129 Alcohol abuse with intoxication, unspecified (principal); F33.9 Major depressive disorder, recurrent, unspecified
CPT/HCPCS: 90100; 92010; 92760; 92761; 92762; 92763; 92764; 92765; 92766; 92767; 95059